=== PATIENT | female | born 1990 | race Caucasian/White ===

== ENCOUNTER 2023-08-13 20:50 | Emergency (ER) | payer MEDICAID ==
[2023-08-13] MEDS ORDERED: Lidocaine 2% Viscous Solution 15 ML UD PO ONE (21:21)
[2023-08-13] MEDS ORDERED: diphenhydrAMINE 50 MG Cap PO ONE (21:22)
[2023-08-13] MEDS ORDERED: Acetaminophen 500 MG Tab PO ONE (21:22)
[2023-08-13] MEDS ORDERED: cefTRIAXone 1 GM Vial IM ONE (22:02)
[2023-08-13 22:34] VITALS: BP 129/85; PULSE 94
== END 2023-08-13 22:33 | disposition home or self-care (01) ==
LOC: FB.ED 20:50
DX: K04.7 Periapical abscess without sinus (principal)
CPT/HCPCS: 96372; 99282; 99283; A9270-GY; J0696

== ENCOUNTER 2024-07-12 08:36 | Emergency (ER) | payer MEDICAID ==
[2024-07-12] MEDS: Ketorolac 30 MG/ML SDV IM ONE (09:11)
[2024-07-12 09:16] LABS: BASOPHILS PERCENT AUTO 0.1 % (0.2-1.5); EOSINOPHILS ABSOLUTE AUTO 0.1 x10-3/uL (0.0-0.8); EOSINOPHILS PERCENT AUTO 1.2 % (0.6-8.1); HEMATOCRIT 39.5 % (34.2-48.2); HEMOGLOBIN 13.1 g/dL (11.4-15.5); LYMPHOCYTES ABSOLUTE AUTO 1.2 x10-3/uL (1.0-4.4); LYMPHOCYTES PERCENT AUTO 9.7 % (18.4-52.1); MEAN CORPUSCULAR HEMOGLOBIN 30.3 pg (23.9-33.9); MEAN CORPUSCULAR HGB CONC 33.3 g/dL (31.9-34.8); MEAN CORPUSCULAR VOLUME 91.1 fL (76.7-100.5); MEAN PLATELET VOLUME 9.1 fL (7.1-12.4); MONOCYTES ABSOLUTE AUTO 0.8 x10-3/uL (0.3-1.0); MONOCYTES PERCENT AUTO 6.5 % (4.4-15.7); NEUTROPHILS ABSOLUTE AUTO 10.3 x10-3/uL (1.5-6.3); NEUTROPHILS PERCENT AUTO 82.5 % (30.8-76.2); PLATELET COUNT,PLT 173 x10(3)uL (151-488); RED BLOOD CELL COUNT 4.33 x10(6)uL (3.60-5.20); RED CELL DISTRIBUTION WIDTH 13.2 % (12.3-16.5); WHITE BLOOD CELL COUNT,WBC 12.4 x10-3/uL (3.0-10.3)
[2024-07-12 09:17] LABS: BLOOD UREA NITROGEN,BUN 10 mg/dL (7-18); BUN/CREATININE RATIO 14.3 (9-20); CALCIUM 8.3 mg/dL (8.6-10.2); CARBON DIOXIDE,CO2 28 mmol/L (21-32); CHLORIDE,CL 101 mmol/L (100-110); CREATININE 0.7 mg/dL (0.55-1.02); EST CRCL DRUG DOSING (CG) 80.57 mL/min; ESTIMATED GFR 116 mL/min (>60); GLUCOSE RANDOM 94 mg/dL (80-116); POTASSIUM,K 3.6 mmol/L (3.5-5.3); SODIUM,NA 138 mmol/L (135-145)
[2024-07-12 09:24] LABS: ALANINE AMINOTRANSFERASE,ALT 20 U/L (12-36); ALBUMIN 3.3 g/dL (3.5-5.2); ALKALINE PHOSPHATASE 53 IU/L (56-112); ASPARTATE AMNIOTRANSFERASE,AST 15 IU/L (5-25); BILIRUBIN TOTAL 0.4 mg/dL (0.1-1.3); PROTEIN TOTAL,TP 6.6 g/dL (6.0-8.0)
[2024-07-12] MEDS: Phenylephrine 0.5% Nasal Spray 15 ML Bot NASBOTH ONE (09:33)
[2024-07-12] MEDS: Oxymetazoline 0.05% Nasal Spray 30 ML Bottle NAS ONE (09:34)
[2024-07-12] MEDS: Iopamidol 755 Mg/ML 100 ML Bottle IV SCH (10:15)
[2024-07-12 12:47] VITALS: BP 97/71; PULSE 76
[2024-07-13] MEDS ORDERED: Iopamidol 755 Mg/ML 100 ML Bottle IV SCH (05:45)
== END 2024-07-12 11:55 | disposition home or self-care (01) ==
LOC: FB.ED 08:36
DX: J18.9 Pneumonia, unspecified organism (principal); F17.210 Nicotine dependence, cigarettes, uncomplicated; Z79.899 Other long term (current) drug therapy
CPT/HCPCS: 36415; 71275; 80053; 85025; 85379; 87635; 96372; 99285; A9270; J1885; Q9967; U0002